=== PATIENT | female | born 1995 | race Caucasian/White ===

== ENCOUNTER 2016-10-17 00:36 | Emergency (ER) | payer OTHER ==
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
--- NOTE | 2016-10-17 03:57 | CT ---
EXAM: CT Maxillofacial Without Intravenous Contrast CLINICAL HISTORY: Reason: Pain TECHNIQUE: Axial computed tomography images of the face without intravenous contrast. CTDI is 30.6 mGy and DLP is 605.9 mGy-cm. This CT exam was performed using one or more of the following dose reduction techniques: automated exposure control, adjustment of the mA and/or kV according to patient size, and/or use of iterative reconstruction technique. COMPARISON: No relevant prior studies available. FINDINGS: Bones/joints: No acute fracture. Soft tissues: Unremarkable. Orbits: Unremarkable. Sinuses: Hyperdense opacity filling the right sphenoid sinus suggest inspissated secretion versus fungal. IMPRESSION: No fracture Hyperdense opacity filling the right sphenoid sinus suggest inspissated secretion versus fungal.
[2016-10-17 04:39] VITALS: BP 108/70; PULSE 64; RESP 16; TEMP 97.8
== END 2016-10-17 04:38 | disposition home or self-care (01) ==
LOC: SUPCPDRO 00:36 → EC 00:36
DX: S00.83XA Contusion of other part of head, initial encounter (principal); S10.93XA Contusion of unspecified part of neck, initial encounter; S00.03XA Contusion of scalp, initial encounter; Z88.0 Allergy status to penicillin; Y04.0XXA Assault by unarmed brawl or fight, initial encounter; Y93.89 Activity, other specified; Y92.810 Car as the place of occurrence of the external cause
CPT/HCPCS: 70450; 70486; 72125; 99284

== ENCOUNTER 2017-10-17 12:28 | Emergency (ER) | payer OTHER ==
[2017-10-17 12:34] VITALS: BP 115/76; PULSE 70; RESP 18; TEMP 97.9
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
== END 2017-10-17 13:16 | disposition home or self-care (01) ==
LOC: EC 12:28
DX: H72.02 Central perforation of tympanic membrane, left ear (principal); Z88.0 Allergy status to penicillin; Z96.22 Myringotomy tube(s) status
CPT/HCPCS: 99283

== ENCOUNTER 2018-10-16 15:21 | Emergency (ER) | payer OTHER ==
[2018-10-16 15:53] VITALS: BP 123/79; PULSE 78; RESP 18; TEMP 98.3
--- NOTE | 2018-10-16 16:18 | ED ---
Female Urogenital HPI - General Chief complaint: Urogenital Stated complaint: Confirm Preg Test Time Seen by Provider: 10/16/18 15:58 Source: patient Mode of arrival: ambulatory Limitations: no limitations - History of Present Illness Initial comments: Patient is a 23-year-old female presenting to the emergency room because she has a at home test. She states that her OB sent her in for an ultrasound. Patient states she is wishing for an ultrasound because she wants to know if she is having twins or not. Patient is denying any abdominal pain, cramping, vaginal bleeding at this time. Patient states her last menstrual cycle was September 11 and has a positive test. Patient has no other complaints at this time. This would be patient's second . Last Menstrual Period: 09/10/18 - Related Data Previous Rx's Medication Instructions Recorded Ofloxacin 0.3% Ophth Soln [Ocuflox 10 drops LEFT EAR BID #1 bottle 10/17/17 Ophth Soln] Allergies Allergy/AdvReac Type Severity Reaction Status Date / Time Penicillins Allergy Rash/Hives Verified 10/16/18 15:53 Review of Systems ROS Statement: Those systems with pertinent positive or pertinent negative responses have been documented in the HPI. ROS Other: All systems not noted in ROS Statement are negative. 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 HEAD: Atraumatic, normocephalic. EYES: Pupils equal round and reactive to light, extraocular movements intact, sclera anicteric, conjunctiva are normal. ENT: TMs normal, nares patent, oropharynx clear without exudates. Moist mucous membranes. NECK: Normal range of motion, supple without lymphadenopathy or JVD. LUNGS: Breath sounds clear to auscultation bilaterally and equal. No wheezes rales or rhonchi. HEART: Regular rate and rhythm without murmurs, rubs or gallops. ABDOMEN: Soft, nontender, normoactive bowel sounds. No guarding, no rebound. No masses appreciated. : Deferred, patient declined. EXTREMITIES: Normal range of motion, no pitting or edema. No clubbing or cyanosis. NEUROLOGICAL: Cranial nerves II through XII grossly intact. Normal speech, normal gait. PSYCH: Normal mood, normal affect. SKIN: Warm, Dry, normal turgor, no rashes or lesions noted. Limitations: no limitations Course Vital Signs 10/16/18 15:51 Temperature 98.3 F Pulse Rate 78 Respiratory 18 Rate Blood Pressure 123/79 O2 Sat by Pulse 100 Oximetry Medical Decision Making - Medical Decision Making Patient is a 23-year-old female presents to the ER to confirm a . Patient states her OB wanted her to come to the ER for confirmation. Patient is denying abdominal pain, cramping, vaginal bleeding at this time. Patient has no further complaints. Patient is denying vaginal exam. Explained to patient that there is no indication for an ultrasound in the ER. UA revealed no signs of infection. HCG kaushal is 1069 indicating a . Patient is counseled to follow up with HUMANITIES AND LANGUAGES PROFESSOR for further management. Patient is in agreement with this plan. Patient be discharged home. Case discussed with Dr. Espino. - Lab Data Lab Results 10/16/18 10/16/18 Range/Units 16:15 16:15 HCG, Quant 1069.4 mIU/mL Urine Color Yellow Urine Appearance Clear (Clear) Urine pH 7.0 (5.0-8.0) Ur Specific [place] 1.022 (1.001-1.035) Urine Protein Trace H (Negative) Urine Glucose (UA) Negative (Negative) Urine Ketones Negative (Negative) Urine Blood Negative (Negative) Urine Nitrite Negative (Negative) Urine Bilirubin Negative (Negative) Urine Urobilinogen <2.0 (<2.0) mg/dL Ur Leukocyte Esterase Moderate H (Negative) Urine RBC 1 (0-5) /hpf Urine WBC 4 (0-5) /hpf Ur Squamous Epith Cells 5 H (0-4) /hpf Urine Mucus Many H (None) /hpf Disposition Clinical Impression: and not yet delivered in first trimester Disposition: HOME SELF-CARE Condition: Stable Instructions (If sedation given, give patient instructions): (ED) Additional Instructions: Please return to the Emergency Department if symptoms worsen or any other concerns. Follow-up with OB. Is patient prescribed a controlled substance at d/c from ED?: No Referrals: None,Stated [Primary Care Provider] - 1-2 days
[2018-10-16 16:30] LABS: Appearance,Urine Clear (Clear); Bilirubin,Urine Negative (Negative); Blood,Urine Negative (Negative); Color,Urine Yellow; Glucose,Urine (UA) Negative (Negative); Ketones,Urine Negative (Negative); Leukocyte Esterase,Urine Moderate (Negative); Mucus,Urine Many /hpf; Nitrite,Urine Negative (Negative); Protein,Urine Trace (Negative); RBC,Urine 1 /hpf (0-5); Specific Gravity,Urine 1.022 (1.001-1.035); Squamous Epithelial Cell,Urine 5 /hpf (0-4); Urobilinogen,Urine <2.0 mg/dL (<2.0)
== END 2018-10-16 17:17 | disposition home or self-care (01) ==
LOC: EC 15:21
DX: Z34.90 Encounter for supervision of normal pregnancy, unspecified, unspecified trimester (principal); Z88.0 Allergy status to penicillin
CPT/HCPCS: 36415; 81001; 84702; 99282

== ENCOUNTER → 2019-03-25 | Outpatient (CLI) | payer OTHER ==
[2019-03-25 12:13] LABS: HCT 29.8 % (34.0-46.0); HGB 9.6 gm/dL (11.4-16.0); Hypochromasia Slight; MCH 27.5 pg (25.0-35.0); MCHC 32.2 g/dL (31.0-37.0); MCV 85.4 fL (80.0-100.0); Mean Platelet Volume 9.9; Platelet Count 185 k/uL (150-450); RBC 3.48 m/uL (3.80-5.40); WBC 6.9 k/uL (3.8-10.6)
== END | disposition home or self-care (01) ==
LOC: LABWHC1 10:52
PROVIDERS: ATTEND Obstetrics & Gynecology
DX: Z34.82 Encounter for supervision of other normal pregnancy, second trimester (principal); Z3A.00 Weeks of gestation of pregnancy not specified
CPT/HCPCS: 36415; 82950; 85027

== ENCOUNTER 2019-03-30 16:59 | Outpatient (CLI) | payer OTHER ==
[2019-03-30 17:23] LABS: Appearance,Urine Clear (Clear); Bacteria,Urine Rare /hpf; Bilirubin,Urine Negative (Negative); Blood,Urine Negative (Negative); Color,Urine Yellow; Glucose,Urine (UA) 3+ (Negative); Ketones,Urine Negative (Negative); Leukocyte Esterase,Urine Small (Negative); Mucus,Urine Rare /hpf; Nitrite,Urine Negative (Negative); Protein,Urine Negative (Negative); RBC,Urine <1 /hpf (0-5); Specific Gravity,Urine 1.015 (1.001-1.035); Squamous Epithelial Cell,Urine 1 /hpf (0-4); Urobilinogen,Urine <2.0 mg/dL (<2.0); WBC,Urine 1 /hpf (0-5)
[2019-03-30 17:35] LABS: Glucose,Whole Blood 114 mg/dL (75-99)
[2019-03-30 18:04] VITALS: BP 134/75; PULSE 102; RESP 15; TEMP 97.3
--- NOTE | 2019-03-31 08:48 | P.MSEPDOC ---
Presenting Problems - Arrival Data Date of Arrival on Unit: 03/30/19 Time of Arrival on Unit: 16:59 Mode of Transport: Ambulatory - Complaint OB-Reason for Admission/Chief Complaint: Vaginal Bleeding Medical History - Information : 2 Para: 1 Term: 1 : 0 Abortions: Spontaneous or Elective: 0 Number of Living Children: 1 - Gestational Age Gestational Age by HOOD (wks/days): 28 Weeks and 2 Days Review of Systems - Review of Systems Constitutional: No problems Breast: No problems ENT: No problems Cardiovascular: No problems Respiratory: No problems Gastrointestinal: No problems Genitourinary: No problems Musculoskeletal: No problems Neurological: No problems Skin: No problems Vital Signs - Temperature Temperature: 97.3 F Temperature Source: Temporal Artery Scan - Pulse Brachial Pulse Rate: 102 Pulse Assessment Method: Automatic Cuff - Respirations Respiratory Rate: 15 Oxygen Delivery Method: Room Air O2 Sat by Pulse Oximetry: 98 - Blood Pressure Right Arm Sitting Blood Pressure: 134/75 Blood Pressure Mean: 94 Blood Pressure Source: Automatic Cuff Medical Screen Scoring (Pre) - Cervical Exam Dilation: 0 cm = 0 Membranes: Intact - Uterine Contractions Frequency: N/A Duration: N/A Intensity: N/A - Maternal Vital Signs Maternal Temperature: N/A Maternal Blood Pressure: N/A Signs of Preeclampsia: N/A Maternal Respirations: N/A - Maternal Trauma Maternal Trauma: N/A - Assessment - Baby A Baseline FHR: 145 Heart Rate - NICHD Category: Category I (Normal) = 0 NST: Reactive Position: N/A Station: N/A - Total Score - Baby A Total Score - Baby A: 0 - Total Score - Baby B Total Score - Baby B: 0 - Total Score - Baby C Total Score - Baby C: 0 - Level of Risk - Baby A Level of Risk - Baby A: Low (0-5) - Level of Risk - Baby B Level of Risk - Baby B: Low (0-5) - Level of Risk - Baby C Level of Risk - Baby C: Low (0-5) Physician Notification (Pre) - Physician Notified Physician Notified Date: 03/30/19 Physician Notified Time: 17:35 New Order Received: Yes - Notification Comment Comment: PT HERE FOR SPOTTING AND CRAMPS. U/A SHOWED 3+GLUCOSE, ACCUCHECK 114.PT'S CERVIX IS FT AND THICK, SMALL AMOUNT OF PINK MUCOUS SEEN WITH EXAM. PT DC'D HOME AND WILL CALL THE OFFICE IN THE AM FOR F/U APPT. Disposition - Disposition OB Disposition: Triage, Discharge to home, Written follow up instructions reviewed Discharge Date: 03/30/19 Discharge Time: 17:46 I agree with the RN Medical Screening Exam: Yes Risk & Benefit of care provided described in d/c instruction: Yes Diagnosis: SPOTTING COMPLICATING , THIRD TRIMESTER
== END 2019-03-30 17:55 | disposition home or self-care (01) ==
LOC: FBPOP 16:59
PROVIDERS: ATTEND Obstetrics & Gynecology
DX: O26.853 Spotting complicating pregnancy, third trimester (principal); Z3A.28 28 weeks gestation of pregnancy
CPT/HCPCS: 59025; 81001; G0463; 99213

== ENCOUNTER 2019-05-19 02:42 | Inpatient (IN) | payer OTHER ==
[2019-05-19] MEDS ORDERED: TERBUTALINE 1 MG/ML VIAL SQ PRN (03:13)
[2019-05-19] MEDS ORDERED: CARBOPROST TROMETHAMINE 250 MCG/ML 1 ML AMP IM PRN (03:13)
[2019-05-19] MEDS ORDERED: OXYTOCIN 10 UNIT/ML 1 ML VIAL IM PRN (03:13)
[2019-05-19] MEDS ORDERED: LIDOCAINE 0.5% (PF) 5 MG/ML (50 ML SDV) SQ PRN (03:13)
[2019-05-19] MEDS ORDERED: METHYLERGONOVINE 0.2 MG/ML 1 ML AMP IM PRN (03:13)
[2019-05-19] MEDS ORDERED: LACTATED RINGERS 1,000 ML IV SCH (03:15)
[2019-05-19] MEDS ORDERED: OXYTOCIN 30 UNITS/500 ML NS 30 UNIT in SALINE 1 500ML.BAG IV SCH (03:15)
[2019-05-19 03:36] LABS: Basophils % (A) 0 %; Eosinophils # (A) 0.1 k/uL (0-0.7); Eosinophils % (A) 1 %; HCT 31.2 % (34.0-46.0); HGB 10.1 gm/dL (11.4-16.0); Hypochromasia Slight; Lymphocytes % (A) 23 %; MCH 25.5 pg (25.0-35.0); MCHC 32.4 g/dL (31.0-37.0); Mean Platelet Volume 10.1; Monocytes # (A) 0.4 k/uL (0-1.0); Monocytes % (A) 5 %; Neutrophils # (A) 5.8 k/uL (1.3-7.7); Neutrophils % (A) 68 %; Platelet Count 188 k/uL (150-450); Poikilocytosis Slight; RBC 3.96 m/uL (3.80-5.40); RDW 14.6 % (11.5-15.5); WBC 8.5 k/uL (3.8-10.6)
[2019-05-19 03:51] LABS: MCV 78.8 fL (80.0-100.0)
[2019-05-19] MEDS ORDERED: CLINDAMYCIN 900 MG in DEXTROSE 5% IN WATER 50 ML IVPB SCH ×2 (04:00)
[2019-05-19 06:09] LABS: Amphetamine Screen,Urine Not Detected (NotDetected); Barbiturate Screen,Urine Not Detected (NotDetected); Benzodiazepines Screen,Urine Not Detected (NotDetected); Cocaine Screen,Urine Not Detected (NotDetected); Methadone Screen, Urine Not Detected (NotDetected); Opiate Screen,Urine Not Detected (NotDetected); Oxycodone Screen, Urine Not Detected (NotDetected); Phencyclidine Screen,Urine Not Detected (NotDetected); Tricyclic Antidepressant,Urine Not Detected (NotDetected); Urn Cannabinoid Scrn Not Detected (NotDetected)
--- NOTE | 2019-05-19 06:31 | P.HPOB ---
History of Present Illness H&P Date: 05/19/19 Chief Complaint: Leaking of fluid. This patient is a 24-year-old 2 para 1 female estimated date of confinement 06/20/2019 estimated gestational age 35-3/7 weeks gestation who is admitted to labor and delivery with complaints of leaking of fluid that started approximately 1:50 this morning. Apparently the patient's partner checked her cervix earlier today and felt that she was 2 cm dilated. Patient had spontaneous rupture of membranes later after that. Patient's care is complicated by late to seek care at approximately 16 weeks. She also has not been in the office since April 21. Apparently patient has a sick child. care is per Dr. Silva. care is also complicated by anemia. 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 History of Any Multi-Drug Resistant Organisms: None Reported Past Surgical History: Adenoidectomy, Ear Surgery, Tonsillectomy Additional Past Surgical History / Comment(s): Myringotomy with tube placement Past Anesthesia/Blood Transfusion Reactions: No Reported Reaction Past Psychological History: Anxiety Smoking Status: Never smoker Past Alcohol Use History: None Reported Past Drug Use History: None Reported - Past Family History Father Family Medical History: Hypertension Son(s) Family Medical History: Cancer Medications and Allergies Home Medications Medication Instructions Recorded Confirmed Type No Known Home Medications 05/19/19 05/19/19 History Allergies Allergy/AdvReac Type Severity Reaction Status Date / Time Penicillins Allergy Rash/Hives Verified 05/19/19 02:43 Exam Vital Signs Temp Pulse Resp BP Pulse Ox 05/19/19 03:14 98.2 F 98 16 149/58 98 05/19/19 03:13 98.2 F 114 H 16 110/62 Intake and Output 05/18/19 05/18/19 05/19/19 14:59 22:59 06:59 Other: Weight 62.596 kg - OBG Physical Exam Vulva: both: normal Vagina: no discharge Cervix: Cervix is 4-5 cm dilated 80% effaced 0 station. Cervix: lesion Uterus: enlarged Results blood work shows she is O positive, rubella immune, RPR nonreactive, hepatitis B negative, HIV is nonreactive, Glucola was normal. Patient's had a normal anatomy ultrasound. Result Diagrams: 05/19/19 03:30 Abnormal Lab Results - Last 24 Hours (Table) 05/19/19 Range/Units 03:30 Hgb 10.1 L (11.4-16.0) gm/dL Hct 31.2 L (34.0-46.0) % MCV 78.8 L D (80.0-100.0) fL Assessment and Plan Assessment: This is a 24-year-old 2 para 1 female 35-3/7 weeks gestation admitted to labor and delivery with premature rupture membranes. On admission patient is proximally 2 cm dilated after 1 hour makes no cervical change therefore Pitocin is started for induction of labor. Due to the patient's prematurity and unknown group B strep status will also begin IV antibiotics and alert special care nursery. This point we are anticipating vaginal delivery. (1) 35 weeks gestation of Current Visit: Yes Status: Acute Code(s): Z3A.35 - 35 WEEKS GESTATION OF SNOMED Code(s): 00099485 (2) premature rupture of membranes Current Visit: Yes Status: Acute Code(s): O42.919 - PRETRM ARMANDO ROM, UNSP TIME BETW RUPT AND ONST LABR, UNSP TRI SNOMED Code(s): 025161964
[2019-05-19] MEDS ORDERED: ROPIVACAINE 5MG/ML 20ML VIAL ONE (06:56)
[2019-05-19] MEDS ORDERED: SODIUM CHLORIDE 0.9% 100 ML BAG ONE (06:56)
[2019-05-19] MEDS ORDERED: fentaNYL (PF) 50 MCG/ML 5 ML AMP ONE (06:56)
[2019-05-19] MEDS ORDERED: ROPIVACAINE 100 MG, fentaNYL (PF) 200 MCG in SODIUM CHLORIDE 0.9% 76 ML EPIDURAL ONE (07:22)
[2019-05-19] MEDS ORDERED: diphenhydrAMINE 25 MG CAP PO PRN (07:48)
[2019-05-19] MEDS ORDERED: BISACODYL 10 MG SUPP RECTAL PRN (07:48)
[2019-05-19] MEDS ORDERED: WITCH HAZEL 1 EACH MED..PAD TOPICAL PRN (07:48)
[2019-05-19] MEDS ORDERED: LANOLIN CREAM 5 GM TUBE TOPICAL PRN (07:48)
[2019-05-19] MEDS ORDERED: ZOLPIDEM 5 MG TAB PO PRN (07:48)
[2019-05-19] MEDS ORDERED: HYDROCORTISONE 2.5% RECTAL CREAM 30 GM TUBE RECTAL PRN (07:48)
[2019-05-19] MEDS ORDERED: BENZOCAINE/MENTHOL SPRAY 1 GM/SPRAY AEROSOL TOPICAL PRN (07:48)
[2019-05-19] MEDS ORDERED: SIMETHICONE 80 MG CHEWABLE PO PRN (07:48)
[2019-05-19] MEDS ORDERED: ACETAMINOPHEN TAB 325 MG TAB PO PRN (07:48)
[2019-05-19] MEDS ORDERED: diphenhydrAMINE 50 MG/ML 1 ML VIAL IVP PRN (07:48)
[2019-05-19] MEDS ORDERED: IBUPROFEN 600 MG TAB PO PRN (07:48)
--- NOTE | 2019-05-19 07:48 | P.PROBDLV ---
Vaginal Delivery Note - . Vaginal Delivery Note: Normal vaginal delivery viable female Apgars 7 and 7 delivery time was 0730 hours. Please see dictated H&P for intimate details of this patient's admission. In brief summary this is a 24-year-old 2 para 1 female 35-3/7 weeks gestation admitted to labor and delivery with premature rupture membranes. heart tones are category 1. After 1 hour patient's made no significant change and therefore was started on Pitocin induction per protocol. Patient therefore progresses to 4-5 cm and does request an epidural. Patient gets good relief with the epidural. She then quickly progresses to complete. Patient pushes the head to the perineum. Posterior perineum was supported and we have controlled delivery of the infant's head over the intact perineum. Note there is some bloody fluid that presents with the head. There is also a d ouble nuchal cord which is very loose but reduced. At this time we have spontaneous delivery the anterior and posterior shoulder and rest this infant's body. This is a viable female Apgars are 7 and 7 delivery time is 0730 hours. does have spontaneous respirations and good cry. Cord is doubly clamped and the infant is handed me the off to the special care nurses for assessment. Cord blood is obtained due to oh positive status. The placenta spontaneously delivered intact. There is about a 1-2 cm clot at the edge of this consistent with possible partial abruption. Sent to pathology. Speculum perineum shows superficial lacerations of the left periurethral area which does not require sutures. All counts are correct 3. There are no complications. Mother's stable in delivery room and infant is taken special care for further observation due to prematurity.
[2019-05-19] MEDS ORDERED: OXYTOCIN 20 UNITS/1000 ML NS 1,000 ML IV SCH (08:00)
[2019-05-19] MEDS: SENNOSIDES-DOCUSATE SODIUM 1 EACH TAB PO SCH ×2 (08:17→19:22)
[2019-05-20 09:42] VITALS: BP 111/67; PULSE 102; RESP 18; TEMP 98.1
[2019-05-20] MEDS: SENNOSIDES-DOCUSATE SODIUM 1 EACH TAB PO SCH (09:43)
--- NOTE | 2019-05-20 09:44 | P.DS ---
Providers Date of admission: 05/19/19 03:01 Expected date of discharge: 05/20/19 Attending physician: Gwen Silva Primary care physician: Stated None - Discharge Diagnosis(es) (1) Normal vaginal delivery Current Visit: Yes Status: Acute Hospital Course: Patient presented with diffuse rupture of membranes over 35 weeks. She underwent Pitocin augmentation and normal vaginal delivery. Post course was uncomplicated. She'll be discharged home day #1 in stable condition to follow-up with me in 6 weeks. Plan - Discharge Summary New Discharge Prescriptions: New Ibuprofen [Motrin] 600 mg PO Q6HR PRN #30 tab PRN Reason: Mild Pain Or Fever >= 100.5 Discharge Medication List Ibuprofen [Motrin] 600 mg PO Q6HR PRN #30 tab 05/20/19 [Rx] Follow up Appointment(s)/Referral(s): Gwen Silva DO [Doctor of Osteopathic Medicine] - 6 Weeks Discharge Disposition: HOME SELF-CARE
--- NOTE | 2019-05-21 05:46 | P.MSEPDOC ---
Presenting Problems - Arrival Data Date of Arrival on Unit: 05/19/19 Time of Arrival on Unit: 02:45 Mode of Transport: Wheelchair - Complaint OB-Reason for Admission/Chief Complaint: Rule Out SROM Comment: Patient states water broke around 2am, clear fluid. Patient grossly. ruptured. Patient states no pain or contractions at this time. Medical History - Information : 2 Para: 1 Term: 1 : 0 Abortions: Spontaneous or Elective: 0 Number of Living Children: 1 - Gestational Age Gestational Age by HOOD (wks/days): 35 Weeks and 3 Days Review of Systems - Review of Systems Constitutional: No problems Breast: No problems ENT: No problems Cardiovascular: No problems Respiratory: No problems Gastrointestinal: No problems Genitourinary: No problems Musculoskeletal: No problems Neurological: No problems Skin: No problems Vital Signs - Temperature Temperature: 98.1 F Temperature Source: Oral - Pulse Right Brachial Pulse Rate: 102 Pulse Assessment Method: Automatic Cuff - Respirations Respiratory Rate: 18 Oxygen Delivery Method: Room Air - Blood Pressure Right Arm Blood Pressure: 111/67 Blood Pressure Mean: 81 Blood Pressure Source: Automatic Cuff Medical Screen Scoring (Pre) - Cervical Exam Dilation: 1-3 cm = 1 Membranes: Ruptured = 3 - Uterine Contractions Frequency: > 5 minutes apart = 1 - Maternal Vital Signs Maternal Temperature: N/A Maternal Blood Pressure: N/A Signs of Preeclampsia: N/A Maternal Respirations: N/A - Maternal Trauma Maternal Trauma: N/A - Assessment - Baby A Baseline FHR: 140 Heart Rate - NICHD Category: Category I (Normal) = 0 NST: Reactive - Total Score - Baby A Total Score - Baby A: 5 - Total Score - Baby B Total Score - Baby B: 5 - Total Score - Baby C Total Score - Baby C: 5 - Level of Risk - Baby A Level of Risk - Baby A: Low (0-5) - Level of Risk - Baby B Level of Risk - Baby B: Low (0-5) - Level of Risk - Baby C Level of Risk - Baby C: Low (0-5) Physician Notification (Pre) - Physician Notified Physician Notified Date: 05/19/19 Physician Notified Time: 03:15 - Notification Comment Comment: RN spoke with Dr. Chanel. Reported that patient was 35 3/7, , with grossly. ruptured membranes. Irregular contactions noted per patient. Cervical exam of 50/-2. Patient has PCN allergy. Order for patient to be admitted for labor given, clindamycin. every 8 hours, pitocin to be started after an hour if labor does not start naturally. patient updated on plan of care and in agreement. Disposition - Disposition OB Disposition: Admit Transferred to:: [address] Discharge Date: 05/20/19 Discharge Time: 11:53 I agree with the RN Medical Screening Exam: Yes Risk & Benefit of care provided described in d/c instruction: Yes Diagnosis: RELATED CONDITIONS, UNSPECIFIED, THIRD TRIMESTER
== END 2019-05-20 12:30 | disposition home or self-care (01) | DRG 807 ==
LOC: FBPOP 02:42 → 4FBP 03:01 → 4L1N 07:49 → 4FBP 07:50
PROVIDERS: ADMIT Obstetrics & Gynecology; ATTEND Obstetrics & Gynecology
PROC: 3E0R3BZ Introduction of Anesthetic Agent into Spinal Canal, Percutaneous Approach (ICD-10-PCS; principal; 2019-05-19)
PROC: 10E0XZZ Delivery of Products of Conception, External Approach (ICD-10-PCS; principal; 2019-05-19)
PROC: 00HU33Z Insertion of Infusion Device into Spinal Canal, Percutaneous Approach (ICD-10-PCS; principal; 2019-05-19)
DX: O42.913 Preterm premature rupture of membranes, unspecified as to length of time between rupture and onset of labor, third trimester (principal); Z37.0 Single live birth; O69.81X0 Labor and delivery complicated by cord around neck, without compression, not applicable or unspecified; O99.02 Anemia complicating childbirth; D64.9 Anemia, unspecified; Z3A.35 35 weeks gestation of pregnancy; Z88.0 Allergy status to penicillin; Z86.59 Personal history of other mental and behavioral disorders; Z82.49 Family history of ischemic heart disease and other diseases of the circulatory system; Z80.9 Family history of malignant neoplasm, unspecified
CPT/HCPCS: 80306; 85025; 86850; 86900; 86901; 88307; 99213